=== PATIENT | male | born 1970 | race Caucasian/White ===

== ENCOUNTER → 2022-02-26 08:03 | Outpatient (CLI) | payer OTHER, SELFPAY ==
--- NOTE | ~2022-02-26 | US_ITS ---
EXAMINATION: US abdomen complete DATE: 02/26/2022 08:37 INDICATION: Hemachromatosis TECHNIQUE: Multiple grayscale and Doppler ultrasound images of the abdomen were obtained. COMPARISON: None available FINDINGS: Bowel gas obscures visualization of the pancreas. The visualized portions of the pancreas a re unremarkable. The liver demonstrates increased echogenicity, heterogenous echotexture, and decreas ed through transmission. There is a 3.9 cm cyst of the liver. No surface nodularity. Normal hepatopet al flow in the main portal vein. Stones are present in the nondistended gallbladder. There is no gall bladder wall thickening or pericholecystic fluid. The normal common bile duct measures 3 mm. There wa s no sonographic Langston sign. The visualized portions of the aorta and inferior vena cava are normal. The right kidney measures 12.5 x 5.5 x 7.0 cm. The left kidney measures 11.9 x 5.2 x 5.3 cm. The kidn eys demonstrate normal parenchymal echogenicity. There is no hydronephrosis. The spleen is normal in appearance and measures 11.5 cm. IMPRESSION: 1. Ultrasound findings in the liver consistent with history of hemachromatosis. Reviewed, dictated and finalized at location B.
== END ==
PROVIDERS: PCP Clinical Nurse Specialist; Visit Provider Internal Medicine Hematology & Oncology
DX: E83.119 Hemochromatosis, unspecified (principal)
CPT/HCPCS: 76700